=== PATIENT | male | born 1950 | race Caucasian/White ===

== ENCOUNTER 2022-11-04 08:04 | Observation (INO) ==
--- NOTE | 2022-10-06 13:47 | PAT Medication Instructions ---
Medication Instructions Date of Service October 06, 2022 Home Medications aspirin 81 mg capsule 81 mg PO QDL atorvastatin 40 mg tablet (Lipitor) 40 mg PO PM bisoprolol fumarate 5 mg tablet 5 mg PO QPM cholecalciferol (vitamin D3) 50 mcg (2,000 unit) capsule (Vitamin D3) 50 mcg PO QDL levothyroxine 75 mcg tablet 75 mcg PO QAM metformin 500 mg tablet 1,000 mg PO BID Continue as directed aspirin 81 mg capsule 81 mg PO QDL (continue as normal unless told otherwise by surgeon) DO NOT take the morning of surgery cholecalciferol (vitamin D3) 50 mcg (2,000 unit) capsule (Vitamin D3) 50 mcg PO QDL metformin 500 mg tablet 1,000 mg PO BID Take morning of surgery With a small sip of water, OTHERWISE NOTHING TO EAT OR DRINK AFTER MIDNIGHT: levothyroxine 75 mcg tablet 75 mcg PO QAM Take evening before surgery atorvastatin 40 mg tablet (Lipitor) 40 mg PO PM bisoprolol fumarate 5 mg tablet 5 mg PO QPM metformin 500 mg tablet 1,000 mg PO BID Other Notes If you have any questions please call us at [phone] or [phone] or [phone] or [phone]
--- NOTE | 2022-10-09 11:32 | Anesthesiology Consultation ---
Date of Service October 09, 2022 Assessment & Plan (1) Encounter for pre-operative examination: - Check BSG AM DOS - COVID screening: Per assessment on 10/09: No known COVID-19 positive contacts or current COVID-19 related symptoms. Travel screen negative. Patient vaccinated. At surgeon discretion if preop Covid testing being done. - Outpatient joint assessment: Pt currently scheduled for inpatient pathway. If surgeon requests review for outpatient joint pathway, patient is not recommended candidate for outpatient joint program from anesthesia standpoint. - Pt scheduled to establish with local cardiology prior to surgery (currently scheduled 11/02 but patient attempting to have appt moved sooner)- cardiology office made aware of upcoming surgery. Awaiting office visit note ([facility]; appt 11/02). Chart Review Chart Review: Patient seen in Pre Admission Testing Teaching & Discussion Pre-Anesthesia Teaching/Discussion Notes: Instructed NPO after midnight before surgery,except medications with 15 cc of water. Medication instructions provided according to the PAT guidelines. History Surgery Operation Date: 11/04/22 07:15 Proposed Procedures p Left Total Knee Arthroplasty, Right Knee Steroid Injection - See Shaikh MD Height/Weight Height: 6 ft 3 in Weight: 127.9 kg Allergies Allergy/AdvReac Type Severity Reaction Status Date / Time codeine AdvReac Vomiting Verified 10/06/22 09:09 Medications Home Medications Medication Instructions Recorded Confirmed Last Taken aspirin 81 mg capsule 81 mg PO QDL 10/06/22 10/06/22 Unknown atorvastatin 40 mg tablet (Lipitor) 40 mg PO PM 10/06/22 10/06/22 Unknown bisoprolol fumarate 5 mg tablet 5 mg PO QPM 10/06/22 10/06/22 Unknown cholecalciferol (vitamin D3) 50 50 mcg PO QDL 10/06/22 10/06/22 Unknown mcg (2,000 unit) capsule (Vitamin D3) levothyroxine 75 mcg tablet 75 mcg PO QAM 10/06/22 10/06/22 Unknown metformin 500 mg tablet 1,000 mg PO BID 10/06/22 10/06/22 Unknown Past Medical History Medical History DM type 2 (diabetes mellitus, type 2) History of atrial fibrillation Dx a.fib with RVR 08/2022 (incidental finding at routine oncology appt)- ablation done 08/2022 ([place], [place]). Was on AC x1 month (d/c by cardio at that point per pt). Pt will be establishing care with local cardiology 10/2022 ([facility]). History of Hodgkin's lymphoma 1984 (hx chemo + radiation) History of prostate cancer Dx 2015, s/p prostatectomy History of pulmonary embolism 2015 (post-op prostatectomy) Treated with AC and placed IVCF (no longer present) HLD (hyperlipidemia) HTN (hypertension) Hx of deep venous thrombosis LLE 2015 (post-op prostatectomy) Hypertension Hypothyroidism Osteoarthritis Osteoporosis Skin cancer removed Exercise / Class Metabolic Activity II 4-5 Yardwork/Stairs/Walk up hill Past Family History Family History Other No family history of adverse response to anesthesia Past Surgical History Surgical History History of arthroscopy of left knee History of cardiac radiofrequency ablation History of colonoscopy History of esophagogastroduodenoscopy (EGD) History of lymph node biopsy History of prostatectomy History of right cataract surgery History of tooth extraction History of transesophageal echocardiography (ROLY) Hx of local excision of skin lesion S/P insertion of IVC (inferior vena caval) filter removed Past Anesthesia History No Hx of Anesthesia Complications and No Family Hx of Anesthesia Complications History of PONV No Hx of PONV and No Hx of Motion Sickness Social History Smoking Status: Never smoker Do You Dip or Chew Tobacco: No (quit 30 years ago) Hx Alcohol Use: Yes Alcohol type: beer alcohol intake frequency: holidays/special occasions only Hx Substance Use: No substance use type: does not use Review of Systems Patient denies chest pain, shortness of breath, dyspnea on exertion, fever, chills, cough, wheezing, palpitations. Physical Exam Vital Signs VITALS BP 150/69 P 61 TEMP 97.9 SP02 95%RA RESP 18 PHYSICAL Decreased cervical extension range of motion. Full TMJ range of motion. TMD 2.5 finger breaths (small chin) Mallampati Score 3 Dentition: upper full dentures, several missing lower Lungs: clear throughout to auscultation Cardiac: regular rate and rhythm, no murmurs noted Spine: normal Carotid arteries: negative bruit Extremities: no edema Lab Results Anesthesia Preop Results Results Anesthesia Widget: WBC 8.02 K/ul (4.8-10.8) 10/09/22 Hgb 13.9 g/dl (14.0-18.0) L 10/09/22 Hct 41.4 % (40.1-51.0) 10/09/22 Plt 225 K/uL (130-400) 10/09/22 Na 138 mmol/L (136-145) 10/09/22 K 4.6 mmol/L (3.5-5.1) 10/09/22 Cl 105 mmol/L (98-107) 10/09/22 CO2 29 mmol/L (21-32) 10/09/22 BUN 17 mg/dl (6-23) 10/09/22 Creat 0.93 mg/dl (0.6-1.4) 10/09/22 Glucose Level 100 mg/dl (70-99(Fasting)) H 10/09/22 PT 10.1 Seconds (9.0-12.0) 10/09/22 PTT 25.3 Seconds (21.0-31.0) 10/09/22 INR 0.9 (0.9-1.1) 10/09/22 HA1c 6.7 % (4.5-5.6) H 10/09/22 Blood Type O Positive 10/09/22 Antibody Screen NEGATIVE 10/09/22 Testing Electrocardiogram Date: 08/13/22 Sinus rhythm at 71 bpm. Possible LAE. Nonspecific ST/T wave abnormality. Compared to previous study, rhythm has reverted to sinus and the rate is slower per report. Chest X-Ray Date: 10/09/22 FINDINGS: Cardiac silhouette is mildly enlarged. Atherosclerosis of the aorta. Eventration of the right hemidiaphragm. No pneumothorax, pleural effusion, airspace consolidation or overt pulmonary edema. Bones of the chest appear stas sly intact. IMPRESSION: No acute process. Echocardiogram Date: 08/12/22 ROLY: LVEF 45-50%. Biatrial dilatation. No thrombus present in PADMAJA. Mild degenerative thickening/calcification of the anterior and posterior mitral valve leaflets. Mild to moderate MR. Mild [place]. COVID-19 Risk Screen Screening Information COVID-19 Screen Date: 10/09/22 Exposure 21 Days Family/Household +COVID Last 21 Days: No Exposure 10 Days Any COVID Exposure Last 10 Days: No Symptoms Last 10 Days Experienced COVID Sx Last 10 Days: No + COVID 0-90 Days COVID + in Last 0-90 Days: No
[~2022-11-04 08:04] MED LIST: ACETAMINOPHEN 500 MG TAB PO SCH; BUPIVACAINE 0.5 % 5 MG/1 ML PF 10ML VIAL ONE; BUPIVACAINE LIPOSOME/PF 266 MG, BUPIVACAINE/EPINEPHRINE 50 ML, SODIUM CHLORIDE 0.9% 30 ... INFIL SCH; CeleBREX 200 MG CAP PO SCH; FAMOTIDINE 20 MG TAB PO SCH; LR 500ML BOLUS, THEN 15ML/HR IV SCH; LR 60ML/HR IV SCH; METOCLOPRAMIDE HCL 10 MG TABLET PO SCH; ROPIVACAINE 0.5% 5 MG/ML 30 ML VIAL ONE; TRANEXAMIC ACID 1,000 MG **IV Intra-op IV SCH
[2022-11-04] MEDS ORDERED: MIDAZOLAM HCL 1 MG/ML 2ML VIAL ONE (10:09)
[2022-11-04] MEDS ORDERED: PROPOFOL IV EMULSION 10 MG/ML 20 ML VIAL IV ONE ×3 (10:09→12:58)
[2022-11-04] MEDS ORDERED: BUPIVACAINE 0.5 % 5 MG/1 ML MPF 30ML VIAL ONE ×2 (10:23→12:07)
[2022-11-04] MEDS ORDERED: BUPIVACAINE LIPOSOME 1.3% 266 MG/20 ML VIAL ONE (10:59)
[2022-11-04] MEDS ORDERED: BUPIVACAINE/EPINEPHRINE 0.25% 1:200,000 30 ML VIAL ONE (11:00)
[2022-11-04] MEDS ORDERED: SODIUM CHLORIDE 0.9% PF 50 ML VIAL ONE (11:00)
[2022-11-04] MEDS ORDERED: ATROPINE SULFATE 0.1 MG/ML 10ML SYR IV PRN (11:25)
[2022-11-04] MEDS ORDERED: ePHEDrine sulfate 50 MG/ML AMP IV PRN (11:25)
[2022-11-04] MEDS ORDERED: fentaNYL citrate 100 MCG/2 ML VIAL IV PRN (11:25)
[2022-11-04] MEDS ORDERED: ONDANSETRON INJ 2 MG/ML 2 ML VIAL IV PRN ×2 (11:25→14:12)
[2022-11-04] MEDS ORDERED: BETAMETH SOD PHOS/ACETATE IA 6 MG/ML IA ONE (11:30)
[2022-11-04] MEDS ORDERED: BETAMETH SOD PHOS/ACETATE IA 6 MG/ML IM ONE (12:18)
[2022-11-04] MEDS ORDERED: ePHEDrine sulfate 50 MG/ML SYR ONE (12:18)
--- NOTE | 2022-11-04 12:33 | History & Physical Bridge Note ---
Date of Service November 04, 2022 History & Physical Bridge Note I have examined the patient, reviewed the History & Physical and in the interval since the performance of the History & Physical I have noted the following changes of clinical significance: no changes noted
--- NOTE | 2022-11-04 13:31 | Operative Report ---
PG Post Operative Report Pre & Post Diagnosis Operation Date: 11/04/22 10:40 Pre-Op Diagnosis: Left Knee, Degenerative Joint Disease Right Knee Pain/degenerative joint disease Post-Op Diagnosis: Left Knee, Degenerative Joint Disease Right Knee Pain/degenerative joint disease I identified the patient and participated in the time-out.: Yes Procedure Operation Date: 11/04/22 10:40 Actual Procedures p Left Total Knee Arthroplasty, Cemented; Right Knee Steroid Injection - See Shaikh MD Surgeon See Shaikh MD Parimutuel [employer] Wood Jesus PA-C Estimated Blood Loss 50 Findings Consistent with Post-Op Diagnosis Operative findings revealed advanced left knee DJD. He had extensive grade 4 [id number] disease with eburnation of the entire medial compartment. He had some spotty grade 4 changes in the patellofemoral compartment as well as the lateral compartment. He had a varus deformity to his knee with a fairly large knee joint effusion. Specimens Left knee sent for pathology Drains None Anesthesia Type Spinal MAC Complications none Disposition Accompanied Patient To Recovery: No Indications Patient is a 72-year-old gentleman said a long history of bilateral knee pain discomfort is gotten gradually gotten worse over the years. He has been through extensive conservative in the past was pain less successful. The left knee is bothering more than the right. X-rays show advanced left knee DJD. He elected proceed with surgical treatment. He has a similar levels of arthritis in his right knee and was wanting his right knee injected at the time of surgery. Description of Procedure Operative implants consist of: 1 Biomet Vanguard size 75 left posterior stabilized femoral component. 2. Biomet size 87 tibial tray. 3. 12 mm posterior stabilized polyethylene insert. 4. 34 x 8 and half all Paller patella. The patient was taken the operating, identified, placed on the operating table supine position protectors were properly padded. IV antibiotics tried by anesthesia team. Spinal anesthetic and abductor canal block had provided in the holding area. Valenzuela catheter was placed in sterile fashion. Left factor was then placed in the left lower extremity and prepped and draped in usual sterile fashion. The left leg was elevated exsanguinated with use of an Esmarch in terms playset 3 mmHg. An anterior approach left knee was then performed to longitudinal incision centered over the patella. Sharp dissection was carried through subcutaneous tissue down the extensor mechanism. A medial parapatellar arthrotomy incision was made. Some subperiosteal dissection was carried out medially. The fat pad was dissected from Neath patella tendon. Lateral patellofemoral ligament was released. Patella subluxated laterally and the knee was flexed with the osteophytes taken off distal femur. The ACL and PCL then released from distal femur the tibia subluxated anteriorly. The external tibial alignment jig was then placed in the interface the tibia and adjusted about 16 mm medially. The proximal tibial cut was made essentially flush with the most deficient aspect medial tibial plateau. Some osteophytes taken off medial and posterior medially. The tibia was sized to a size 87. Attention drawn the femur. The distal femur was entered with a sharp drill. Intramedullary canal was suction. A 6 degree valgus cutting guide was placed. The distal femoral cutting block was pinned in place. Distal femoral cut was made to take an additional 3 mm of bone off distal femur. The femur was then sized to a size 75. The AP cutting block was pinned parallel to the epicondylar axis which was 3 degrees of external rotation. Anterior cut, anterior chamfer, posterior cut, posterior chamfer cuts were made. The box cutting guide was placed in just slight lateral and the box cut was made. The knee was flexed. The remnants of the medial and lateral menisci were excised. The osteophyte taken off the posterior aspect of femur. A trial femoral component was placed. The tibial tray was pinned in maximum external rotation and the drill and stem punch used to create the defect in the proximal tibia for the tibial tray. Knee was then trialed and the 12 mm insert fit most appropriately. Attention drawn the patella. The patella was cleaned of all soft tissues. Patella thickness measured 23 mm in thickness was cut down to 15. Was sized to a size 34 patella. The lug holes were drilled for the 34 patella. The lateral osteophytes removed. Patella button was placed. Knee was taken through range of motion patella tracked nicely with no thumbs test. Attention drawn to placing the permanent components. All trial components were removed. Bone plug was placed in the distal femur limit blood loss. Double batch Palacos G cement was mixed. A BiomReelBigguard size 75 left posterior stabilized femoral component, size 87 tibial tray, a 12 mm posterior stabilized polyethylene insert, and a 34 x 8 and half all Paller patella then cemented in place. Knee was brought out into full extension total cement hardened. Final cement check was then performed. Pericapsular tissues were injected with total 100 cc of combination of 20 cc of Exparel, 30 cc normal saline, 50 cc of quarter percent Marcaine with epinephrine. Patient did receive 1 g tranexamic acid. The tourniquet was let down for final turn time 60 minutes. Hemostasis assured with electrocautery. Extensor mechanism closed with combination 1 PDS suture #1 Vicryl suture in [id number] fashion. Extensor mechanism checked found to be intact the subcutaneous tissues were then closed with 2 Dexon suture in a buried interrupted fashion skin was closed skin hugh. Legs then cleaned and dried and sterile dressed with Xeroform, 4 fours, sterile cast padding, Kristian bandage were applied. The right knee was then prepped with alcohol. I injected the right knee with 2 cc of Celestone and 8 cc of half percent Marcaine. 4 x 4's were then placed over the injection site followed by the Arnold stocking. Patient then transferred to the recovery room in stable condition. Patient tolerated the procedure well and there were no complications. I attest to the content of the Intraoperative Record and any orders documented therein. Any exceptions are noted below.
--- NOTE | 2022-11-04 13:43 | XRay Report ---
XR knee LT 1 or 2V routine HISTORY: 72 years-old Male Surgical Post Op [knee total joint arthroplasty COMPARISON: Knee radiographs 09/09/2022 TECHNIQUE: 2 views of the left knee FINDINGS: Total joint arthroplasty with patellar resurfacing. Anterior midline skin hugh are present along w ith expected postoperative soft tissue swelling with deep tissue air. No acute fracture, dislocation or unexpected opaque foreign body. IMPRESSION: Total joint arthroplasty with expected postoperative changes. ACT 112: Negative or not required by law. The above report was generated using voice recognition software. It may contain grammatical, syntax o r spelling errors. Electronically signed by: Evelio Felix M.D. 11/04/2022 1:42 PM
--- NOTE | 2022-11-04 13:43 | Anesthesiology Progress Note ---
Date of Service November 04, 2022 Anesthesia Post Procedure Vital Signs Vital Signs: Temp Pulse Resp BP Pulse Ox O2 Del Method O2 Flow Rate 11/04/22 13:35 77 18 127/61 96 Oxymask 3 11/04/22 13:25 74 16 127/57 L 96 Oxymask 7 11/04/22 13:19 97.3 F L 92 H 20 129/53 L 98 Oxymask 7 Transfer of Care Handoff Completed per policy Notes Mental Status: alert / awake / arousable and participated in evaluation Patient Amnestic to Procedure: Yes Nausea / Vomiting: adequately controlled Pain: adequately controlled Airway Patency, RR, SpO2: stable & adequate BP & HR: stable & adequate Hydration State: stable & adequate Neuraxial Anesthesia: was administered and sensory block is resolving Anesthetic Complications: no major complications apparent and Pt Satisfied with anesthetic care
[2022-11-04] MEDS ORDERED: CARBOHYDRATES FOR HYPOGLYCEMIA PO PRN (14:12)
[2022-11-04] MEDS ORDERED: DEXTROSE 50% 50 ML SYRINGE IV PRN (14:12)
[2022-11-04] MEDS ORDERED: MAGNESIUM HYDROXIDE SUSP 30 ML UDC PO PRN (14:12)
[2022-11-04] MEDS ORDERED: NALOXONE HCL 0.4 MG/1 ML VIAL/CARP IV PRN (14:12)
[2022-11-04] MEDS ORDERED: GLUCAGON FOR INJ 1 MG VIAL SQ PRN (14:12)
[2022-11-04] MEDS ORDERED: ALUMINUM/MAGNESIUM SUSP 30 ML UDC PO PRN (14:12)
[2022-11-04] MEDS ORDERED: bisacodyL 10 MG SUPP PR PRN (14:12)
[2022-11-04] MEDS ORDERED: GLUCOSE 40% GEL 15 GM TUBE PO PRN (14:12)
[2022-11-04] MEDS ORDERED: GLUCOSE 10 TAB/TUBE PO PRN (14:12)
[2022-11-04] MEDS ORDERED: METOCLOPRAMIDE HCL INJ 5 MG/ML 2 ML VIAL IV PRN (14:12)
[2022-11-04] MEDS ORDERED: HYDROmorphone INJ 0.5 MG/0.5 ML SYR IV PRN (14:12)
[2022-11-04] MEDS ORDERED: PHARMACY GLYCEMIC MGMT CONSULT PRN (14:12)
--- NOTE | 2022-11-04 15:10 | Pharmacy Report ---
Pharmacy Glycemic Short Note 2 - Date of Service November 04, 2022 - Glycemic Short BSG Results (Last 24 hours): 11/04/22 11/04/22 08:26 14:10 POC Glucose 139 H 140 H OUTPATIENT ANTIDIABETIC REGIMEN: * Metformin 1000mg BID ASSESSMENT: * 72 year old male presenting for left knee surgery. * Received intraarticular Betamethasone in the right knee; Type 2 diet ordered. * Will give 10 units of lantus at dinner to cover steroids and Novolog at a stress factor of 2. PLAN FOR INPATIENT GLYCEMIC CONTROL: * Hold outpatient oral diabetes medications * Basal insulin * Lantus 10 units at dinner once * Bolus insulin * NovoLog per scale ACHS or Q6hrs while NPO * Goal Range: Low 110 mg/dL - High 140 mg/dL * Correction Factor: 20 mg/dL/unit * Nutritional / Prandial insulin per carb ratio of 1 unit per 7 grams CHO consumed
[2022-11-04] MEDS: ACETAMINOPHEN 500 MG TAB PO SCH ×2 (15:11→21:48)
[2022-11-04] MEDS: SODIUM CHLORIDE 0.9% 1000ML 1,000 ML IV SCH (15:11)
[2022-11-04] MEDS ORDERED: LANTUS PER UNIT CHARGE SQ SCH (16:00)
[2022-11-04] MEDS ORDERED: LANTUS PER UNIT CHARGE SQ ONE (16:00)
[2022-11-04] MEDS: KETOROLAC TROMETHAMINE 15 MG/ML VIAL IV SCH ×2 (17:10→23:37)
[2022-11-04] MEDS: ASCORBIC ACID 500 MG TAB PO SCH (17:10)
[2022-11-04] MEDS: oxyCODONE HCL IR 5 MG TAB (IMMEDIATE RELEASE) PO PRN ×2 (17:57→23:36)
[2022-11-04] MEDS: INSULIN ASPART PER UNIT SC SCH ×2 (18:37→21:49)
[2022-11-04] MEDS ORDERED: TRANEXAMIC ACID / 0.7% NACL 1,000 MG/100 ML BAG IV SCH (19:30)
[2022-11-04] MEDS: ceFAZolin 2000MG 2,000 MG/15 ML SYR IV SCH (20:52)
[2022-11-04] MEDS: DOCUSATE SODIUM/SENNA 50/8.6MG TAB PO SCH (20:53)
[2022-11-04] MEDS: DOCUSATE SODIUM 100 MG CAP PO SCH (20:53)
[2022-11-04] MEDS: TAPENTADOL HCL ER 50 MG TABCR PO SCH (20:55)
[2022-11-04] MEDS ORDERED: ATORVASTATIN 40 MG TAB PO SCH (21:00)
[2022-11-04] MEDS ORDERED: BISOPROLOL FUMARATE 5 MG TAB PO SCH (21:00)
[2022-11-04] MEDS ORDERED: SENNA 8.6 MG TAB PO SCH (21:00)
[2022-11-05] MEDS: SODIUM CHLORIDE 0.9% 1000ML 1,000 ML IV SCH (01:08)
[2022-11-05] MEDS: ceFAZolin 2000MG 2,000 MG/15 ML SYR IV SCH (04:59)
[2022-11-05] MEDS: KETOROLAC TROMETHAMINE 15 MG/ML VIAL IV SCH ×2 (05:47→11:39)
[2022-11-05] MEDS: ACETAMINOPHEN 500 MG TAB PO SCH (05:48)
[2022-11-05] MEDS ORDERED: LEVOTHYROXINE SODIUM 75 MCG TABLET PO SCH (06:30)
[2022-11-05] MEDS: oxyCODONE HCL IR 5 MG TAB (IMMEDIATE RELEASE) PO PRN ×2 (06:34→12:49)
[2022-11-05] MEDS: TAPENTADOL HCL ER 50 MG TABCR PO SCH (08:25)
[2022-11-05] MEDS: ASCORBIC ACID 500 MG TAB PO SCH (08:26)
[2022-11-05] MEDS: DOCUSATE SODIUM/SENNA 50/8.6MG TAB PO SCH (08:26)
[2022-11-05] MEDS: DOCUSATE SODIUM 100 MG CAP PO SCH (08:26)
[2022-11-05 08:39] LABS: BUN Creatinine Ratio 18.6 (10-20); Calcium 8.8 mg/dl (8.5-10.1); Creatinine Clr Calc Pharmacy 96.1 ml/min; Est GFR (African American) 85.3 ml/min; Est GFR (Non-African American) 73.6 ml/min; Potassium 4.7 mmol/L (3.5-5.1)
[2022-11-05] MEDS ORDERED: TAMSULOSIN HCL 0.4 MG CAP PO SCH (09:00)
[2022-11-05] MEDS ORDERED: LANTUS PER UNIT CHARGE SQ SCH (09:00)
[2022-11-05] MEDS ORDERED: MULTIVITAMIN TAB PO SCH (09:00)
[2022-11-05] MEDS: INSULIN ASPART PER UNIT SC SCH (09:28)
[2022-11-05 09:29] LABS: Hemoglobin 11.7 g/dl (14.0-18.0); Mean Corpuscular Hemoglobin 31.6 pg (25.0-34.0); Mean Corpuscular Hgb Conc 34.4 g/dL (32.0-36.0); Mean Corpuscular Volume 91.9 fL (80.0-100.0); Mean Platelet Volume 9.9 fL (9.4-12.4); Platelet Count 203 K/uL (130-400); RDW Coefficient of Variation 13.2 % (11.5-14.5); RDW Standard Deviation 44.7 fL (36.4-46.3); White Blood Count 11.25 K/ul (4.8-10.8)
[2022-11-05] MEDS ORDERED: CHOLECALCIFEROL 1,000 UNITS 25 MCG TAB PO SCH (11:30)
--- NOTE | 2022-11-05 13:37 | Progress Notes ---
DATE OF SERVICE: 11/05/2022 SUBJECTIVE: A 72-year-old gentleman now postoperative day 1 from a left knee replacement and a right knee injection. He is doing pretty well. Pain is much improved today. He has got some regular akash n medicine and therapy went pretty well. He is hoping to go home. Denies any chest pain or shortnes s of breath. Not feeling dizzy or lightheaded. OBJECTIVE: VITAL SIGNS: Temperature 36.3. Vital signs are stable. PHYSICAL EXAMINATION: GENERAL: Physical exam shows a large middle-aged male. He is sitting up in his bedside chair and lo oks pretty comfortable this morning. LUNGS: Clear to auscultation. HEART: Regular rate and rhythm. ABDOMEN: Soft, nontender, and nondistended. EXTREMITIES: Grossly neurovascularly intact except as follows. Examination of the left leg reveals the dressing to be clean, dry, and intact. No drainage. He can dorsiflex and plantarflex his foot appropriately. He is neurologically intact. LABORATORY DATA: Hemoglobin 11.7. Hematocrit 34.0. Electrolytes are stable. ASSESSMENT: A 72-year-old gentleman postoperative day 1 from a left knee replacement and right knee injection, doing pretty well. His pain is controlled. Therapy went reasonably well. He is hoping t o go home. PLAN: 1. DVT prophylaxis to include thigh-high TEDs, SCDs, and we will put him on Xarelto for 30 days at 1 0 mg dose. 2. PT/OT and weight bear as tolerated. Left total knee protocol. 3. Pain control: Doing okay with current pain regimen. 4. Disposition: Plan to discharge to home with some home health likely later today. Job ID: [id number]
[2022-11-05] MEDS ORDERED: RIVAROXABAN 10 MG TABLET PO SCH (14:00)
--- NOTE | 2022-11-08 13:43 | Discharge Summary ---
Date of Service November 08, 2022 Discharge Data Procedures Performed Operation Date: 11/04/22 10:40 Actual Procedures p Left Total Knee Arthroplasty, Cemented; Right Knee Steroid Injection - See Shaikh MD Hospital Course (1) Status post total left knee replacement: This is a 72 year old patient admitted on 11/04/22 and underwent left total knee arthroplasty and right knee injection. He tolerated the procedure well and there were no complications. Transferred to the PACU post op and later to the orthopedic floor for further care. He was given ancef for antibiotic prophylaxis. He was also given TERI stockings, SCDs, and xarelto for DVT prophylaxis. Hemoglobin, hematocrit, and vital signs were monitored during his hospital stay and remained stable. Did not require any blood transfusions. There were no complications during his hospital stay. By post op day #1 the patient was tolerating a regular diet, pain was reasonably controlled with oral pain medicine, and he was participating in physical therapy. On post op day #1 the patient was discharged home and set up with home health care. He was given printed discharge instructions including prescriptions for extra strength tylenol, xarelto, cefadroxil, zofran, senokot, flomax, and oxycodone. Continue physical therapy, weight bearing as tolerated. Continue TERI stockings. Follow up approximately 2 weeks post op or sooner if there are problems or concerns. Coding Level of Care Code None Diagnoses Status post total left knee replacement Z96.652
== END 2022-11-05 14:09 | disposition home health service (06) ==
LOC: PACUINP 08:04 → ASU 08:04 → 3N 15:03